=== PATIENT | male | born 1955 | race Caucasian/White ===

== ENCOUNTER 2019-04-27 10:10 | Day surgery (SDC) | payer MEDICARE, SELFPAY ==
[2019-04-26 15:12] VITALS: BMI 39.4
[2019-04-27] VITALS (16 sets, daily range): BP systolic 154–193; BP diastolic 79–98; PULSE 87–110; RESP 10–95; TEMP 36.1–37.1; O2SAT 8–96; BMI 35.7
--- NOTE | 2019-04-27 | DI.RAD.S_ITS ---
PROCEDURE: XR CERVICAL SPINE 2V OR 3V INDICATIONS: C5-6 , C6-7 ACDF TECHNIQUE: 3 view(s) of the cervical spine were acquired. COMPARISON: None. FINDINGS: Bones: Immediate postoperative examination documenting normal alignment established after anterior discectomy and placement of articulating disc prosthesis at C5-6 and C6-7. Soft tissues: No prevertebral soft tissue swelling. IMPRESSION: Normal alignment established after C5-6 and C6-7 operative intervention. Dictated by: Mick Salter M.D. on 04/27/2019 at 14:42 Approved by: Mick Salter M.D. on 04/27/2019 at 14:43
[2019-04-27] MEDS: LACTATED RINGERS 1,000 ML 42 ML IV ×2 (11:10→15:35)
--- NOTE | 2019-04-27 11:15 | PM.PREOP ---
Pre-operative Note Interval Note History & Physical reviewed/Exam performed by Physician: Yes Changes to H&P: No
[2019-04-27] MEDS: CEFAZOLIN 2 GM/100 ML FROZ.PIGGY IV ×2 (12:15→20:37)
--- NOTE | 2019-04-27 12:45 | SUR.OPER ---
Supine, head on gel donut. Arms padded with gel pads, tucked at sides, towel roll under shoulders. Safety belt at thigh. Legs uncrossed.
[2019-04-27] MEDS: SODIUM CHLORIDE 0.9% 1,000 ML, GENTAMICIN 80 MG IRR (12:52)
[2019-04-27] MEDS: THROMBIN (RECOMBINANT) 5,000 UNIT VIAL 5000 UNIT TOP (12:52)
[2019-04-27] MEDS: BUPIVACAINE 0.25% W/ EPI 30 ML VIAL INJ (12:53)
--- NOTE | 2019-04-27 13:51 | P.OP_ITS ---
Operative Date/Time/Diagnoses Date of procedure: 04/27/19 Time of procedure: 13:51 Pre-op diagnosis: Cervical stenosis with myelopathy Post-op diagnosis: same Procedure & Clinicians Procedure: C5-6, C6-7 anterior diskectomy in artificial disc replacement Use of microscope Same procedure as scheduled: Yes Indications: [age] year old male with progressive myelopathy from stenosis. They had failed conservative management and requested operative intervention. Risks and benefits of surgery were discussed and appropriate consents were obtained. Surgeon: Rip Felix Pack Press Operator: Sara Garrido Anesthesia Type: General Operative Notes Findings: None Closure Type: primary Specimen(s): none sent Prosthetic devices, grafts, tissues, transplants, or devices: Juan Mobi-C Estimated Blood Loss (mL): 10 Procedure in detail: Patient was brought to the operating room and intubated on the table. A time-out was performed. Preoperative antibiotics were given. The neck was prepped and draped in the standard sterile fashion. Using a skin fold, we made a 3 cm oblique incision on the left side. We used Bovie to go through the platysma and then did a standard anterolateral blunt dissection down to the precervical fascia. Fascia was nicked and elevated up. A marker was placed and x-ray was taken for localization. We then subperiosteally elevated up the longus colli muscles. Self-retaining retractors were placed. [place] pins were placed under x-ray guidance to be parallel to the endplates. We then brought in the microscope. A scalpel used to perform an annulotomy. We then used a combination of pituitaries and curettes and Kerrison to perform a complete anterior diskectomy at C6-7. We took down the PLL and used Kerrison to remove posterior disc material and osteophytes. At the end we could from the nerve hook cephalad caudally and out the foramen and everything was opened. We distracted open with the parallel environmental services coordinator. We then used the horseshoes for sizing. We then used the trials. We then inserted a 15 x 17 x 5mm size Mobi-C artificial disc replacement under fluoroscopic guidance for positioning. The traction was released and x-ray was checked again. We then moved up to the C5-6 level. Again a complete diskectomy was performed with pituitaries, curettes, and Kerrisons. We took down the PLL and used the Kerrison to remove all the posterior material. In the end a nerve hook could be run throughout and everything was open. We distracted with the parallel environmental services coordinator. We trialed and then placed a 15 x 15 x 5 mm Mobi-C under fluoroscopy. The traction was released and x-ray was checked again. The self-retaining retractors and [place] pins were removed and final x-rays taken. The wound was irrigated. There was no bleeding. The carotid was beating nicely. The platysma was closed. The superficial was closed. The skin was closed. A sterile dressing was placed. They were then extubated and brought to recovery room with no complications. Complications: none Post-operative Condition: stable Disposition: PACU Plan for aftercare: Overnight admission. Soft collar for comfort.
[2019-04-27] MEDS: hydrOXYzine 50 MG/ML INJ 25 MG IM (14:25)
[2019-04-27] MEDS: fentaNYL 100 MCG/2 ML INJ IV ×3 (14:25→14:44)
[2019-04-27] MEDS: HYDROCODONE/ACET 5/325 TABLET 2 TAB PO (14:51)
[2019-04-27] MEDS: LACTATED RINGERS 1,000 ML 125 ML IV ×2 (16:13→23:55)
[2019-04-27] MEDS: HYDROMORPHONE 0.5 MG INJ IV (16:44)
[2019-04-27] MEDS: DEXAMETHASONE 4 MG/ML VIAL IV ×2 (17:29→23:56)
[2019-04-27] MEDS: GABAPENTIN 300 MG CAPSULE PO (17:34)
[2019-04-27] MEDS: dilTIAZem 30 MG TABLET PO (20:13)
[2019-04-27] MEDS: NAPROXEN 250 MG TABLET 500 MG PO (20:37)
[2019-04-27] MEDS: DOCUSATE 100 MG CAPSULE PO (20:37)
[2019-04-27] MEDS: SENNOSIDES 8.6 MG TABLET 17.2 MG PO (20:38)
[2019-04-27] MEDS: ATORVASTATIN 10 MG TABLET PO (20:38)
--- NOTE | 2019-04-27 22:31 | PC.NURSE ---
notified Dr. Fox regarding patient's HR and BP. pt is asymptomatic. denied any chest pain or sob. pt tolerating pain /10. pt sitting in chair. cont pulse ox 94% RA. dressing cdi. soft collar on. SBA to the BR. voiding without difficulty. call light in reach.
[2019-04-28 00:30] VITALS: BP 150/89; PULSE 118; RESP 16; TEMP 37.2; O2SAT 94
--- NOTE | 2019-04-28 00:58 | PC.NURSE ---
Pt alert and oriented x4. SBA. Pain denies any pain at this time. Cervical gauze dressing clean dry and intact. Soft collar on. Asymptomatic tachycardia, pt denies any complaints. Pt reports My HR usually runs in the 90s. MD aware. Pulse ox on. WCTM
[2019-04-28 02:02] VITALS: PULSE 106
[2019-04-28] MEDS: HYDROCODONE/ACET 5/325 TABLET 1 TAB PO ×2 (03:17→08:33)
[2019-04-28] MEDS: CEFAZOLIN 2 GM/100 ML FROZ.PIGGY IV (03:17)
[2019-04-28 05:01] VITALS: PULSE 90
[2019-04-28] MEDS: PANTOPRAZOLE 40 MG TABLET PO (05:57)
[2019-04-28] MEDS: DEXAMETHASONE 4 MG/ML VIAL IV (05:58)
[2019-04-28 06:43] VITALS: BP 147/76; PULSE 109; RESP 16; TEMP 36.7; O2SAT 93
[2019-04-28 07:45] VITALS: BP 157/99; PULSE 102; RESP 16; TEMP 36.8; O2SAT 93
--- NOTE | 2019-04-28 08:16 | PM.PNPO.1 ---
Subjective Subjective Date Patient Seen: 04/28/19 Time Patient Seen: 08:16 Interval history: He is doing very well, pain 3/10 all central base of the neck, no more shoulder pain. Exam Vital Signs (past 8 hours): - 04/28/19 00:30 04/28/19 02:02 04/28/19 05:01 Temperature 98.9 F Pulse Rate 118 H 106 H 90 Respiratory Rate 16 Blood Pressure 150/89 H Pulse Oximetry 94 04/28/19 06:43 Temperature 98.1 F Pulse Rate 109 H Respiratory Rate 16 Blood Pressure 147/76 H Pulse Oximetry 93 Oxygen Delivery Method Room Air Oxygen Flow Rate 0 Const Orientation: alert and oriented x3 Back/Spine/Pelvis Other: CDI. 5/5 motor both upper extremities Assessment & Plan Post-op Postoperative Procedures: Procedures Operation Date: 04/27/19 12:15 Actual Procedures Side Surgeon p C56 & C67 anterior discectomy and artificial disc replacement Rip Felix MD he is doing very well. Plan for discharge home today.
[2019-04-28] MEDS: DOCUSATE 100 MG CAPSULE PO (08:32)
[2019-04-28] MEDS: NIACIN 500 MG TABLET PO (08:32)
[2019-04-28] MEDS: dilTIAZem 30 MG TABLET PO (08:32)
[2019-04-28] MEDS: NAPROXEN 250 MG TABLET 500 MG PO (08:33)
--- NOTE | 2019-04-28 09:28 | OT.IPNOTE ---
Spoke to pt and regarding any OT need and spoke of precautions for grooming,dressing , and bathing needs. Pt and have good understanding for all needs. Only seen for several minutes, therefore no OT charge.
--- NOTE | 2019-04-28 10:07 | PC.NURSE ---
Day Shift- Discharge summary packet reviewed with pt and his Blanca. Pt had questions regarding the surgery replacement parts, This assembly instructions writer asked pt to refer to his follow up appointments to clarify, he was okay with this. States has all belongings, including his CPAP. Left mid anterior neck dressing CDI with scant shadowing drainage to upper left corner of dressing. Soft collar in place. CMS+, pt does report numbness/tingling to left lateral forearm and hand, strong power shovel operator equally. Ambulated in halls this AM with his , steady gait. Pain 3/10 aching to neck, no spasms at this time. PRN Trail 1 tab given at 0830, effective pain management. No further voiced concerns. Pt left unit at 1007 via wheelchair in no distress with PEST CONTROLLER ASSISTANT escort. Pt's Blanca to drive pt home.
--- NOTE | 2019-04-28 10:27 | PT.IIE ---
Current Diagnoses Unspecified cord compression (04/27/19) Spinal stenosis, cervical region (04/27/19) Strain of muscle, fascia and tendon at neck level, subsequent encounter (04/27/19) Other specified postprocedural states (04/27/19) Surgery Performed Operation Date: 04/27/19 12:15 Actual Procedures p C56 & C67 anterior discectomy and artificial disc replacement - Rip Felix MD Surgical History (Last Updated 04/26/19 @ 15:18 by Janice Ariza RN) Hx of cervical discectomy (Acute) S/P epidural steroid injection (Acute) Medical History (Last Updated 04/26/19 @ 15:18 by Janice Ariza RN) Bilateral knee pain (Acute) GERD (gastroesophageal reflux disease) (Acute) Hepatitis C (Acute) HLD (hyperlipidemia) (Acute) HTN (hypertension) (Acute) Seasonal allergies (Acute) Physical Therapy Inpatient Evaluation/Re-Eval M1 PT/OT-IP Prior Functional Status Start: 04/28/19 08:20 Freq: NEEDED Status: Discharge Protocol: Document 04/28/19 08:35 (Rec: 04/28/19 10:27 [email or web address]) Medical Review Prior Functional Status Medical History Reviewed Yes Diet/Fluid Consistency Regular Communication no deficits noted. Able to make needs known. Mobility and Gait independent with all mobility without AD. Stated he cant lift much d/t pain Activities of Daily Living and IADL's independent with all ADLs and IADLs without AD. able to drive but unable to carry grocery long d/t pain and UE weakness. Social History Household Members significant other Living Arrangements House Number of Floors (Floors) One Floor Number of Stairs To Enter/Railing? 2 MAHESH w/o rail has a ramp for entrance Home Environment Standard Height Toilet,Tub/ Shower Doors,Ramp Home Equipment Front Wheel Walker,Straight Cane,Raised Toilet Seat w/ Armrests,Tub Transfer Bench, Bin Filler,Sock Aid Employment Status Retired Additional Social History Comment Pt lives with his significant other in [place], has friends and family around to assist if needed. M2 PT-IP Current Condition Start: 04/28/19 08:20 Freq: NEEDED Status: Discharge Protocol: Document 04/28/19 08:35 (Rec: 04/28/19 10:27 [email or web address]) Physical Therapy Current Condition Current Condition Evaluation Date 04/28/19 Treatment Diagnosis C5-7 ACDF, tingling and weakness on both UEs Onset Date 04/27/19 Precautions Cervical Spine Precautions Soft Collar for Comfort,Rigid Collar,No Heavy Lifting,Log Roll Weight Bearing Status Weight Bearing Status Full Weight Bearing M3 PT-IP Subjective Start: 04/28/19 08:20 Freq: NEEDED Status: Discharge Protocol: Document 04/28/19 08:35 (Rec: 04/28/19 10:27 [email or web address]) Subjective Physical Therapy Visit Type Type Initial Evaluation Visit Start Time 08:35 Visit Stop Time 08:55 Total Visit Minutes 20 Notes pt's significant other attended session Number of EDUCATION AND DEVELOPMENT MANAGER Visits 0 Physical Therapy Visit Comments Patient Comments I feel pretty good and not much pain in my arms. Patient Goals to return home Therapy Pain Assessment Pain When Pain Assessed At Rest Pain Present Pain Present Pain Reported Location Bilateral Neck Intensity 3 Scale Used Numeric (1 - 10) Description Aching Pain Management Techniques Timing of Activity with Medications M4 PT-IP Mobility and Gait Start: 04/28/19 08:20 Freq: NEEDED Status: Discharge Protocol: Document 04/28/19 08:35 (Rec: 04/28/19 10:27 [email or web address]) PT-Transfer Assessment Sit to and From Stand Sit to and from Stand Standby Assistance,Use of Upper Extremities Equipment Transfer Assistive Device None Orthotic/Prosthetic Devices or Brace: Yes Transfers Transfer Destination Chair Transfer Technique Stand Step Pivot Transfer Ability Level of Assist Standby Assistance,Use of Upper Extremities Comments Mobility Comments Pt was in chair upon PT arrival. BP at 155/98 HR 108. Pt denied discomfort down to his UE but noticed reduced sensation to touch at his L pinky finger. Pt got up by using UEs to push off from chair armrests and amb to sink counter for collar fitting. He was able to stand unsupportedly and reached overhead to gabby/doff collar independently. No LOB noted. He then amb from his room to [facility] for stair climbing. He returned to his room and demonstrates safe transfer to chair SBA. Gait Assessment Gait Gait Assistance Required: Standby Assistance Distance (Feet) 180 Able to Maintain Weight Bearing Status Yes During Gait Assistive Devices Assistive Device None Orthotic/Prosthetic Devices or Brace: No Gait Deviations General Gait Pattern Within Normal Limits Factors Limiting Gait Function Factors Limiting Gait Function Limited Range of Motion Comments Gait Comments see mobility comment. Pt does not have any gait deviation/ LOB Stair Climbing Assessment Evaluation Level of Assist On Stairs Standby Assistance Devices Stair Climbing Assistive Devices None Technique/Endurance Stair Climbing Direction Ascend and Descend Stair Climbing Technique Step Over Step,Step to Step Number of Steps Climbed 3 Query Text: Stair Climbing Set # Repetitions (reps) 2 Comments Stair Climbing Comments ascend with step over pattern and descend with step to pattern PT-Balance Assessment Sitting Balance and Reactions Static Sitting Balance Ability Normal Dynamic Sitting Balance Ability Normal Standing Balance and Reactions Static Standing Balance Ability Normal Dynamic Standing Balance Ability Normal M5 PT-IP Objective Assessments Start: 04/28/19 08:20 Freq: NEEDED Status: Discharge Protocol: Document 04/28/19 08:35 (Rec: 04/28/19 10:27 [email or web address]) Orientation Orientation/Cognition Level of Alertness Alert Orientation Name,Age,Birthday,Month,Date, Year,Day of Week,Place, Situation Language Function Ability No Deficits Noted Safety Awareness Understands Safety Issues Memory Description No Deficits Noted Gross Range of Motion Upper Extremity ROM Assessment Within Functional Limits Lower Extremity ROM Assessment Within Functional Limits Strength Upper Extremity Strength Assessment Within Functional Limits Shoulder 4+/5 Elbow 4+/5 Wrist 4+/5 Hand 4+/5 Lower Extremity Strength Assessment Within Functional Limits Comments Strength Comments L wrist flexion/ extension = 4 /5 Coordination Assessment Gross Coordination Gross Coordination WNL Sensation Assessment Sensation Gross Sensation Left UE Impaired Light Touch Impaired Comments Sensation Comments numbness noted at L pinky finger. Muscle Tone Muscle Tone WNL No M6 PT-IP Treatment Start: 04/28/19 08:20 Freq: NEEDED Status: Discharge Protocol: Document 04/28/19 08:35 (Rec: 04/28/19 10:27 [email or web address]) Physical Therapy Treatment Education Education Provided Precautions,Weight Bearing Status,Post-Op Packet,Safety Brace Education [place],Patient M7 PT-IP Assessment and Plan Start: 04/28/19 08:20 Freq: NEEDED Status: Discharge Protocol: Document 04/28/19 08:35 (Rec: 04/28/19 10:27 [email or web address]) PT Summary Assessment and Plan Potential Rehabilitation Potential Excellent Status of Condition at Evaluation Stable Summary Impairments Pain,ROM,Strength,Sensation Progress Towards Goals Safe For Discharge Assessment Summary This is an evaluation only for this pt POD 2 C5-7 ACDF. Upon assessment, pt is SBA for all mobility and transfers. He has good understanding for his precautions and safety. He is currently ready for d/c to home with significant other's assistance as needed. Frequency of Treatment Frequency Of Treatment Discharge Recommendations To Nursing Amount of Assist Needed Standby Assistance Discharge Recommendations PT Discharge Recommendations Home with Assistance Transportation Needs at Discharge Private Vehicle
--- NOTE | 2019-04-28 14:07 | CM.DANOTE ---
DCP Bre[place] Assessment: EMR reviewed: Patient is a 64 yr old male who was admitted for C5-6, C6-7 anterior diskectomy in artificial disc replacement preformed by Dr Felix. PCP is Dr. Curiel. CM/RN was not able to meet with patient prior to D/C. Cm/Rn Reviewed EMR to verify patient had a safe D/C plan for home. Patient had a PT evaluation that said home with assist and OT noted that OT eval was not needed. Patient currently lives in a single level home with 2 steps into the home. Patient has a FWW, Cane and elevated toilet seat at home. Patients girl friend: Blanca transported patient home and will be assisting with patients recovery. I: [facility] and self pay Plan: D/C home with girl friend Blanca. Marion Fox RN Discharge Planning/Care Management CM Discharge Assessment Start: 04/28/19 14:04 Freq: Status: Active Protocol: Document 04/28/19 14:05 HS (Rec: 04/28/19 14:06 [id number]) Discharge Planning Assessment Assigned Test Rack Operator Marion Fox RN DPOA/Assigned Designee Name Zarina Esquivel (girlfriend) Contact Information [phone] Advance Directives? No History Provided By Medical Record Has Patient been admitted in last 30 No days? Prior Living Arrangements House Household Members significant other Type of transporation used prior to Drives own vehicle admit Independent with ADL's Yes Is patient alert and oriented? Yes: according to notes patient was alert and oriented Caregiver for Another No DME Already Rented / Owned Elevated Toilet Seat,FWW / Walker,Cane Discharge Plan Home Referrals Initiated None needed Whiteboard Updated in Patient Room with Yes name and ext. # of Test Rack Operator Review Status In Process Pre-Anesthesia Assessment Start: 04/26/19 15:12 Freq: Status: Complete Protocol: Document 04/26/19 15:12 CAB (Rec: 04/26/19 15:23 CAB [id number]) Pre-Anesthesia Assessment Patient Information Reviewed Via Chart Review H&P Completed Within 30 Days Yes Diagnostic Results BMP/CMP,CBC,EKG Comment Outside labs/EKG scanned to record Primary Care Provider Kenton Curiel Seen Specialist in Last 12 Months Yes Specialist Seen Orthopedist Comment H&P states pt cleared by PCP, clearance not forward onto [place] Primary Language Cuban Hydraulic Spinner Required No Height 172.72 cm Weight 117.48 kg Body Mass Index (BMI) 39.4 alcohol intake current Alcohol Intake Frequency Other: Socially Smoking Status Never smoker Pain Present Pain Reported Musculoskeletal Symptoms Limited Range of Motion,Neck Pain,Radiating Pain into Limb Patient is completely paralyzed or No completely immobile Mental Status Oriented to own ability Currently Taking a Beta Serena No Anti-Coagulant Therapy No Urinary Catheter Present No Hx Urinary Self Catheterization No Diabetes No Marital Status Unknown Patient Discharge Plan Description Return Home
== END 2019-04-28 10:07 | disposition home or self-care (01) ==
LOC: OR 10:15 → AC 10:15
PROVIDERS: Family Provider Family Medicine; PCP Family Medicine; Referring Provider Family Medicine; Visit Provider Orthopaedic Surgery
PROC: (CPT 22856; principal; 2019-04-27 12:15)
DX: M48.02 Spinal stenosis, cervical region (principal); S16.1XXD Strain of muscle, fascia and tendon at neck level, subsequent encounter; Z98.890 Other specified postprocedural states; G95.20 Unspecified cord compression; E66.9 Obesity, unspecified; Z68.36 Body mass index [BMI] 36.0-36.9, adult
CPT/HCPCS: 22856; 22858; 72040; 76000; 97161; C1776; J0690; J1100; J1170; J2405; J2704; J3010; J3410

== ENCOUNTER → 2019-09-02 11:29 | Outpatient (CLI) | payer MEDICARE, SELFPAY ==
[2019-04-27 10:26] VITALS: BMI 35.7
--- NOTE | 2019-09-02 | DI.RAD.S_ITS ---
PROCEDURE: XR FOOT LT MIN 3V INDICATIONS: LEFT FOOT PAIN TECHNIQUE: 3 views of the foot were acquired. COMPARISON: None. FINDINGS: Bones: No fractures or dislocations. No suspicious bony lesions. Small plantar and posterior calcaneal spurs. Severe first MTP joint degeneration Soft tissues: No tibiotalar joint effusion. Achilles tendon appears normal. IMPRESSION: No fracture. If the patient's symptoms do not improve recommend followup radiographs in 10 days to assess for healing sclerosis/occult injury. Chronic degenerative changes as above Dictated by: Walter Vazquez M.D. on 09/02/2019 at 14:23 Approved by: Walter Vazquez M.D. on 09/02/2019 at 14:26
== END ==
PROVIDERS: Family Provider Family Medicine; PCP Family Medicine; Referring Provider Family Medicine; Visit Provider Family Medicine
DX: M79.672 Pain in left foot (principal); M77.32 Calcaneal spur, left foot; M19.072 Primary osteoarthritis, left ankle and foot
CPT/HCPCS: 73630

== ENCOUNTER → 2023-08-05 07:54 | Outpatient (CLI) | payer MEDICARE, SELFPAY ==
[2019-04-27 10:26] VITALS: BMI 35.7
[2023-08-05 09:30] LABS: Hemoglobin A1C% w Est Avg Glu 5.8 % (4.0-6.0)
[2023-08-05 09:44] LABS: Cholesterol 130 mg/dL (140-199); HDL Cholesterol 34 mg/dL (40-60); LDL Cholesterol Calculated 44 mg/dL (<100); Triglycerides 258 mg/dL (35-150)
== END ==
PROVIDERS: Family Provider Family Medicine; PCP Family Medicine; Referring Provider Family Medicine; Visit Provider Family Medicine
DX: Z13.1 Encounter for screening for diabetes mellitus (principal)
CPT/HCPCS: 36415; 80061; 83036

== ENCOUNTER → 2023-12-24 09:11 | Outpatient (CLI) | payer MEDICARE, SELFPAY ==
[2019-04-27 10:26] VITALS: BMI 35.7
[2023-12-24 10:24] LABS: Creatinine Urine Random 169.46 mg/dL
[2023-12-24 10:31] LABS: Microalbumin Urine Random 2.5 mg/dL (0-1.6)
== END ==
PROVIDERS: Family Provider Family Medicine; PCP Family Medicine; Visit Provider Family Medicine
DX: E11.9 Type 2 diabetes mellitus without complications (principal)
CPT/HCPCS: 82043; 82570

== ENCOUNTER → 2024-03-04 07:27 | Outpatient (CLI) | payer MEDICARE, SELFPAY ==
[2019-04-27 10:26] VITALS: BMI 35.7
--- NOTE | 2024-03-04 07:29 | DI.US.S_ITS ---
PROCEDURE: US ABD AORTA ANEURYSM SCREEN INDICATIONS: creen for aneurysm TECHNIQUE: Real-time scanning was performed of the aorta and proximal common iliac arteries, with image documentation. COMPARISON: None. FINDINGS: Aorta: Abdominal aorta is normal in caliber throughout its length. Proximal aorta measures 2.4 cm. Mid aorta measures 2.0 cm. Distal aorta measures 1.6 cm. Iliacs: Proximal common iliac arteries are normal in caliber. IMPRESSION: Negative screening abdominal aortic ultrasound for aneurysm. No follow-up required. Dictated by: Brody Melgar M.D. on 03/04/2024 at 17:18 Approved by: Brody Melgar M.D. on 03/04/2024 at 17:19
== END ==
PROVIDERS: Family Provider Family Medicine; PCP Family Medicine; Referring Provider Family Medicine; Visit Provider Family Medicine
DX: Z13.6 Encounter for screening for cardiovascular disorders (principal); Z87.891 Personal history of nicotine dependence
CPT/HCPCS: 76706

== ENCOUNTER → 2024-03-04 07:29 | Outpatient (CLI) | payer MEDICARE, SELFPAY ==
[2019-04-27 10:26] VITALS: BMI 35.7
--- NOTE | 2024-03-04 07:30 | DI.CT.S_ITS ---
PROCEDURE: CT LUNG LOW DOSE SCREENING INDICATIONS: former cigarette use, continued cigar use TECHNIQUE: Noncontrast 2.0-2.5 mm thick sections acquired from the pulmonary apices to the posterior costophrenic angles. 7 mm thick axial MIP, and 5 mm coronal and sagittal reformats were then acquired. For radiation dose reduction, the following was used: automated exposure control, adjustment of mA and/or kV according to patient size. COMPARISON: None. FINDINGS: Image quality: Diagnostic. Lower Neck: No enlarged lymph nodes. Thyroid: No thyroid nodules which require sonographic follow up, per consensus guidelines. Axillae: No enlarged lymph nodes. Chest Wall: Unremarkable. Bones: Unremarkable. Lungs and Pleura: No pneumothorax or pleural effusions. No consolidation or suspicious nodules. Heart: Heart size is normal. No pericardial effusion. Three-vessel coronary calcifications. Thoracic Vessels: The aorta and pulmonary arteries demonstrate normal size. Mediastinum and Aranza: No enlarged lymph nodes. Esophagus: No wall thickening. No hiatal hernia. Upper Abdomen: 1.4 cm hypoattenuating lesion in segment 7 of the liver, with heterogeneous attenuation of the liver. IMPRESSION: No suspicious pulmonary nodules. LUNG-RADS 1; continued annual screening, if eligible. Clinically Significant Non-pulmonary Findings: 1.4 cm hypoattenuating lesion in segment 7 of the liver, with superimposed heterogeneous attenuation suggestive of superimposed fat deposition. Recommend further characterization with MRI (hepatic mass protocol with Eovist). Dictated by: Campbell Kothari M.D. on 03/04/2024 at 10:36 Approved by: Campbell Kothari M.D. on 03/04/2024 at 10:45
== END ==
PROVIDERS: Family Provider Family Medicine; PCP Family Medicine; Referring Provider Family Medicine; Visit Provider Family Medicine
DX: Z13.6 Encounter for screening for cardiovascular disorders (principal); Z12.2 Encounter for screening for malignant neoplasm of respiratory organs; Z87.891 Personal history of nicotine dependence; I25.10 Atherosclerotic heart disease of native coronary artery without angina pectoris; K76.9 Liver disease, unspecified
CPT/HCPCS: 71271; 76706

== ENCOUNTER → 2024-08-23 09:59 | Outpatient (CLI) | payer MEDICARE, SELFPAY ==
[2019-04-27 10:26] VITALS: BMI 35.7
[2024-08-23 10:29] LABS: Hemoglobin A1C% w Est Avg Glu 5.7 % (4.0-6.0)
[2024-08-23 10:50] LABS: Alanine Aminotransferase 47 IU/L (<50); Albumin Globulin Ratio 1.5 (1.0-2.8); Alkaline Phosphatase 105 U/L (38-126); Aspartate Aminotransferase 32 IU/L (17-59); BUN Creatinine Ratio 17.5 (6-22); Bilirubin Total 0.8 mg/dL (0.2-1.3); Blood Urea Nitrogen 20 mg/dL (9-20); Calcium 9.2 mg/dL (8.4-10.2); Carbon Dioxide 21 mmol/L (22-32); Chloride 109 mmol/L (98-107); Cholesterol 139 mg/dL (140-199); Estimated Glomerular Filt Rate > 60 mL/min (>60); Globulin 2.7 g/dL (1.7-4.1); Glucose 106 mg/dL (70-99); HDL Cholesterol 35 mg/dL (40-60); HEMOLYSIS < 15 (0-50); LDL Cholesterol Calculated 66 mg/dL (<100); Potassium 4.4 mmol/L (3.4-5.1); Sodium 140 mmol/L (137-145); Total Protein 6.7 g/dL (6.3-8.2); Triglycerides 188 mg/dL (35-150)
== END ==
PROVIDERS: Family Provider Family Medicine; PCP Family Medicine; Referring Provider Family Medicine; Visit Provider Family Medicine
DX: E11.9 Type 2 diabetes mellitus without complications (principal); I10 Essential (primary) hypertension; E78.5 Hyperlipidemia, unspecified
CPT/HCPCS: 36415; 80053; 80061; 83036

== ENCOUNTER → 2025-02-09 08:40 | Outpatient (CLI) | payer MEDICARE, SELFPAY ==
[2019-04-27 10:26] VITALS: BMI 35.7
[2025-02-09 09:10] LABS: Hemoglobin A1C% w Est Avg Glu 5.2 % (4.0-6.0)
== END ==
PROVIDERS: Family Provider Family Medicine; PCP Family Medicine; Referring Provider Family Medicine; Visit Provider Family Medicine
DX: Z13.1 Encounter for screening for diabetes mellitus (principal)
CPT/HCPCS: 36415; 83036